=== PATIENT | female | born 1985 | race Caucasian/White ===

== ENCOUNTER 2025-01-21 20:58 | Emergency (ER) | payer OTHER ==
[~2025-01-21] VITALS: Ht 157.5 cm; Wt 63.0 kg
[2025-01-21 21:00] VITALS: BP 132/58; TEMP 98.7; O2SAT 99
[2025-01-21] MEDS: DERMABOND TOPICAL SKIN ADHESIVE TOP ONE (21:50)
[2025-01-21] MEDS: BOOSTRIX VACCINE (TETANUS/DIPHTH/ACEL. PERTUSSIS) 0.5ML SYR IM.IMMUN ONE (21:54)
== END 2025-01-21 22:10 | disposition home or self-care (01) ==
LOC: M ED 20:58
DX: S01.81XA Laceration without foreign body of other part of head, initial encounter (principal); W22.8XXA Striking against or struck by other objects, initial encounter; Z23 Encounter for immunization; Y92.009 Unspecified place in unspecified non-institutional (private) residence as the place of occurrence of the external cause; Y93.89 Activity, other specified; Y99.9 Unspecified external cause status